=== PATIENT | female | born 1960 | race Caucasian/White ===

== ENCOUNTER 2016-11-04 20:10 | Emergency (ER) | payer MEDICARE, BC ==
[2016-11-04] MEDS ORDERED: Potassium Chloride 20 MEQ in Premix Bag 1 BAG IV ONE (22:21)
[2016-11-04] MEDS ORDERED: Potassium Chloride 10% 20 MEQ/15 ML Soln 15 ML UD Cup PO ONE (22:23)
[2016-11-04] MEDS ORDERED: Magnesium Oxide 400 MG Tab PO ONE (22:24)
[2016-11-04] MEDS ORDERED: Sodium Chloride 0.9% 10 ML Syringe FLUSH PRN (22:29)
[2016-11-04] MEDS ORDERED: Acetaminophen/oxyCODONE 325-5 MG Tab PO ONE (22:33)
[2016-11-05 01:21] VITALS: BP 122/65
--- NOTE | 2016-11-05 02:07 | EDM.PDOC ---
ED HPI GENERAL MEDICAL PROBLEM - General Chief Complaint: Cardiovascular Problem Stated Complaint: INFECTED SORES (39) HEART IS IRREGULAR Time Seen by Provider: 11/04/16 21:19 Source of Information: Reports: Patient History Limitations: Reports: No Limitations - History of Present Illness INITIAL COMMENTS - FREE TEXT/NARRATIVE: This patient said she drove about 3 hours today to see her daughter who is sick in her hospital. She said her heart seems to be fluttering and she feels sort of weak and shaky. She said she was outside yesterday but she drank a lot of fluids. Occasionally she feels her heart pounding she denies any pain. She takes atenolol for mitral valve prolapse she has hypothyroidism. She denies ever using any kind of diuretics. She also complained of mid back pain and requested medication for this. back Pain Score (Numeric/FACES): 6 heart Pain Score (Numeric/FACES): 0 - Related Data Allergies Allergy/AdvReac Type Severity Reaction Status Date / Time Sulfa (Sulfonamide Allergy Fever Verified 11/04/16 20:50 Antibiotics) Home Meds: Home Meds Atenolol 1 tab PO BID 11/04/16 [History] Levothyroxine Sodium [Synthroid] 1 tab PO DAILY 11/04/16 [History] Hydrocodone/Acetaminophen [Hydrocodon-Acetaminophen 5-325] 1 tab PO ASDIRECTED PRN 11/06/16 [History] Past Medical History Cardiovascular History: Reports: Arrhythmia, Heart Murmur, Hypertension Musculoskeletal History: Reports: Back Pain, Chronic, Osteoarthritis Endocrine/Metabolic History: Reports: Hypoparathyroidism - Past Surgical History HEENT Surgical History: Reports: Naso-Sinus Surgery GI Surgical History: Reports: Cholecystectomy Female Surgical History: Reports: Hysterectomy Social & Family History - Tobacco Use Smoking Status *Q: Never Smoker ED ROS GENERAL - Review of Systems Review Of Systems: See Below Constitutional: Reports: Weakness HEENT: Reports: No Symptoms Respiratory: Reports: No Symptoms Cardiovascular: Reports: Palpitations Endocrine: Reports: No Symptoms GI/Abdominal: Reports: No Symptoms : Reports: No Symptoms Musculoskeletal: Reports: No Symptoms Skin: Reports: Other (A lot of insect bites to her legs. She says these are fleas) Neurological: Reports: No Symptoms Psychiatric: Reports: No Symptoms Hematologic/Lymphatic: Reports: No Symptoms Immunologic: Reports: No Symptoms ED EXAM, GENERAL - Physical Exam Exam: See Below Exam Limited By: No Limitations General Appearance: Alert, WD/WN, No Apparent Distress Eye Exam: Bilateral Eye: Normal Inspection Ears: Normal External Exam Throat/Mouth: Normal Inspection Head: Atraumatic Neck: Normal Inspection Respiratory/Chest: Lungs Clear Cardiovascular: Regular Rate, Rhythm, No Murmur GI/Abdominal: Soft, Non-Tender Back Exam: Normal Inspection Extremities: Normal Inspection Neurological: Alert, Oriented Psychiatric: Normal Affect (Found out something) Skin Exam: Warm ( interesting), Dry (You might find useful) Course - Vital Signs Last Recorded V/S: Last Vital Signs Temp 35.8 C 11/05/16 01:19 Pulse 63 11/04/16 22:10 Resp 16 11/05/16 01:19 BP 122/65 11/05/16 01:19 Pulse Ox 96 11/05/16 01:19 - Orders/Labs/Meds Labs: Laboratory Tests 11/04/16 11/04/16 11/04/16 Range/Units 21:44 21:44 22:21 WBC 5.4 (4.5-11.0) K/uL RBC 4.47 (3.30-5.50) M/uL Hgb 12.8 (12.0-15.0) g/dL Hct 36.1 (36.0-48.0) % MCV 81 (80-98) fL MCH 29 (27-31) pg MCHC 36 (32-36) % Plt Count 299 (150-400) K/uL Neut % (Auto) 37 (36-66) % Lymph % (Auto) 50 H (24-44) % [place] % (Auto) 11 H (2-6) % Eos % (Auto) 2 (2-4) % Baso % (Auto) 1 (0-1) % Sodium 129 L (140-148) mmol/L Potassium 2.3 L* (3.6-5.2) mmol/L Chloride 86 L (100-108) mmol/L Carbon Dioxide 33 H (21-32) mmol/L Anion Gap 12.3 (5.0-14.0) mmol/L BUN 17 (7-18) mg/dL Creatinine 1.1 H (0.6-1.0) mg/dL Est Cr Clr Drug Dosing 47.70 mL/min Estimated GFR (MDRD) 51 L (>60) Glucose 120 H (74-106) mg/dL Calcium 8.9 (8.5-10.1) mg/dL Magnesium 2.1 (1.8-2.4) mg/dL Total Bilirubin 0.3 (0.2-1.0) mg/dL AST 39 H (15-37) U/L ALT 24 (12-78) U/L Alkaline Phosphatase 96 (46-116) U/L Troponin I < 0.017 (0.000-0.056) ng/mL Total Protein 8.1 (6.4-8.2) g/dL Albumin 4.0 (3.4-5.0) g/dL Globulin 4.1 H (2.3-3.5) g/dL Albumin/Globulin Ratio 1.0 L (1.2-2.2) 11/05/16 Range/Units 00:40 WBC (4.5-11.0) K/uL RBC (3.30-5.50) M/uL Hgb (12.0-15.0) g/dL Hct (36.0-48.0) % MCV (80-98) fL MCH (27-31) pg MCHC (32-36) % Plt Count (150-400) K/uL Neut % (Auto) (36-66) % Lymph % (Auto) (24-44) % [place] % (Auto) (2-6) % Eos % (Auto) (2-4) % Baso % (Auto) (0-1) % Sodium (140-148) mmol/L Potassium 3.5 L (3.6-5.2) mmol/L Chloride (100-108) mmol/L Carbon Dioxide (21-32) mmol/L Anion Gap (5.0-14.0) mmol/L BUN (7-18) mg/dL Creatinine (0.6-1.0) mg/dL Est Cr Clr Drug Dosing mL/min Estimated GFR (MDRD) (>60) Glucose (74-106) mg/dL Calcium (8.5-10.1) mg/dL Magnesium (1.8-2.4) mg/dL Total Bilirubin (0.2-1.0) mg/dL AST (15-37) U/L ALT (12-78) U/L Alkaline Phosphatase (46-116) U/L Troponin I (0.000-0.056) ng/mL Total Protein (6.4-8.2) g/dL Albumin (3.4-5.0) g/dL Globulin (2.3-3.5) g/dL Albumin/Globulin Ratio (1.2-2.2) Meds: Medications Discontinued Medications Generic Name Dose Route Start Last Admin Trade Name Freq PRN Reason Stop Dose Admin Potassium Chloride 20 meq/ 100 mls @ 50 mls/hr 11/04/16 22:21 11/04/16 22:44 Premix IV 11/05/16 00:20 50 mls/hr ONETIME ONE Administration Lidocaine HCl Confirm 11/04/16 22:36 11/04/16 22:45 Xylocaine-Mpf 1% Administered 11/04/16 22:37 5 ml Dose Administration 5 ml .ROUTE .STK-MED ONE Magnesium Oxide 800 mg 11/04/16 22:24 11/04/16 22:36 Magnesium Oxide PO 11/04/16 22:25 800 mg ONETIME ONE Administration Oxycodone/Acetaminophen 1 tab 11/04/16 22:33 11/04/16 22:39 Percocet 325-5 Mg PO 11/04/16 22:34 1 tab ONETIME ONE Administration Potassium Chloride 40 meq 11/04/16 22:23 11/04/16 22:43 Potassium Chloride Solution PO 11/04/16 22:24 40 meq ONETIME ONE Administration Sodium Chloride 10 ml 11/04/16 22:29 11/04/16 22:44 Saline Flush FLUSH 10 ml ASDIRECTED PRN Administration Keep Vein Open - Re-Assessments/Exams Free Text/Narrative Re-Assessment/Exam: 11/06/16 07:40 EKG showed sinus rhythm at 71 bpm borderline intraventricular conduction delay there seems to be some repolarization abnormality I don't think this is ischemia however her QTC is 622 ms. I think the T waves were seeing her actually Q waves because her potassium is 2.3. A repeat EKG about one hour later is similar. An IV was established she was given a total of 20 mEq of KCl over 2 hours IV. She also received 40 mEq of oral solution. She also received a single dose of magnesium oxide orally although her magnesium level subsequently turned out to be normal. After receiving the potassium her serum potassium was up to 3.5. QTC was down to 521 ms. She still appears to have U waves. The lateral ST depression seems to have resolved. 11/06/16 07:44 This patient did complain of severe back pain while she was here and was given Narco which seemed to help 11/06/16 07:45 Departure - Departure Time of Disposition: 02:03 Disposition: Home, Self-Care 01 Condition: Fair Clinical Impression: Palpitations, Acute hypokalemia - Discharge Information Instructions: Hypokalemia, Potassium Content of Foods Referrals: PCP,None [Primary Care Provider] - Forms: ED Department Discharge Additional Instructions: You had severe hypokalemia. This can be very irritating to your heart and cause cardiac arrhythmias. It also causes muscle weakness and a number of other things. We have not determined what was the cause of the hypokalemia. You will need to talk with your doctor about that. In the meantime take daily at least 1/2 teaspoon of salt substitute. Salt substitute is potassium chloride. A half teaspoon of salt substitute contains about 30 mEq of potassium. A low magnesium level can be associated with hypokalemia. Your magnesium level was however normal. Even so you should take one tablet of magnesium oxide daily. You may find this in the vitamin area at the [employer]. Generally about 400 mg of magnesium oxide daily. Please plan to see your doctor within the next week and bring copies of all your labs and EKGs The hydrocodone can cause sedation and impair driving.
== END 2016-11-05 02:27 | disposition home or self-care (01) ==
LOC: JP.ED 20:10
DX: R00.2 Palpitations (principal); E87.6 Hypokalemia; I10 Essential (primary) hypertension; M19.90 Unspecified osteoarthritis, unspecified site; E20.9 Hypoparathyroidism, unspecified; Z90.49 Acquired absence of other specified parts of digestive tract; Z98.890 Other specified postprocedural states; Z90.710 Acquired absence of both cervix and uterus; Z79.899 Other long term (current) drug therapy; Z79.82 Long term (current) use of aspirin; Z88.2 Allergy status to sulfonamides
CPT/HCPCS: 36415; 80053; 83735; 84132; 84484; 85025; 93005; 93010; 96360; 96361; 99284; 99285; A9270; J3480; J7050

== ENCOUNTER 2016-11-06 07:13 | Emergency (ER) | payer MEDICARE, BC ==
[2016-11-06 07:34] VITALS: BP 129/65
[2016-11-06] MEDS ORDERED: Cyclobenzaprine 10 MG Tab PO ONE (07:44)
[2016-11-06] MEDS ORDERED: Ketorolac 60 MG/2 ML SDV IM ONE (07:44)
--- NOTE | 2016-11-06 07:52 | EDM.PDOC ---
ED HPI GENERAL MEDICAL PROBLEM - General Chief Complaint: Back Pain or Injury Stated Complaint: BACK PAIN Time Seen by Provider: 11/06/16 07:39 Source of Information: Reports: Patient, RN Notes Reviewed History Limitations: Reports: No Limitations - History of Present Illness INITIAL COMMENTS - FREE TEXT/NARRATIVE: 56-year-old female presents emergency department today with a complaint of low back pain, she states she injured herself while moving some household furniture , was evaluated in the emergency department yesterday at which time she was found to be hypokalemic in combination with low back pain and experiencing palpitations. She feels the palpitations have resolved back pain has continued no loss of bowel or bladder is predominantly on the left side. She also states she's been having troubles with her thyroid and has been areflexic Back Pain Score (Numeric/FACES): 7 - Related Data Allergies Allergy/AdvReac Type Severity Reaction Status Date / Time Sulfa (Sulfonamide Allergy Fever Verified 11/04/16 20:50 Antibiotics) Home Meds: Home Meds Atenolol 1 tab PO BID 11/04/16 [History] Levothyroxine Sodium [Synthroid] 1 tab PO DAILY 11/04/16 [History] Acetaminophen/oxyCODONE [Percocet 325-5 MG] 1 each PO Q6H PRN #10 tab 11/06/16 [ Rx] Cyclobenzaprine [Flexeril] 10 mg PO TID PRN #30 tab 11/06/16 [Rx] Hydrocodone/Acetaminophen [Hydrocodon-Acetaminophen 5-325] 1 tab PO ASDIRECTED PRN 11/06/16 [History] Past Medical History Cardiovascular History: Reports: Arrhythmia, Heart Murmur, Hypertension Musculoskeletal History: Reports: Back Pain, Chronic, Osteoarthritis Endocrine/Metabolic History: Reports: Hypoparathyroidism - Past Surgical History HEENT Surgical History: Reports: Naso-Sinus Surgery GI Surgical History: Reports: Cholecystectomy Female Surgical History: Reports: Hysterectomy Social & Family History - Tobacco Use Smoking Status *Q: Never Smoker - Caffeine Use Caffeine Use: Reports: Coffee - Recreational Drug Use Recreational Drug Use: No ED ROS GENERAL - Review of Systems Review Of Systems: See Below Constitutional: Reports: No Symptoms Respiratory: Reports: No Symptoms Cardiovascular: Reports: No Symptoms GI/Abdominal: Reports: No Symptoms : Reports: No Symptoms Musculoskeletal: Reports: Back Pain Neurological: Reports: No Symptoms ED EXAM,LOWER BACK PAIN/INJURY - Physical Exam Exam: See Below Exam Limited By: No Limitations General Appearance: Alert, WD/WN, No Apparent Distress Respiratory/Chest: No Respiratory Distress Back Exam: Normal Inspection, Decreased Range of Motion, Muscle Spasm, Paraspinal Tenderness. No: CVA Tenderness (R), CVA Tenderness (L), Vertebral Tenderness Course - Vital Signs Last Recorded V/S: Last Vital Signs Temp 97.3 F 11/06/16 07:34 Pulse 64 11/06/16 07:34 Resp 16 11/06/16 07:34 BP 129/65 11/06/16 07:34 Pulse Ox 96 11/06/16 07:34 - Orders/Labs/Meds Meds: Medications Discontinued Medications Generic Name Dose Route Start Last Admin Trade Name Freq PRN Reason Stop Dose Admin Cyclobenzaprine HCl 10 mg 11/06/16 07:44 11/06/16 07:49 Flexeril PO 11/06/16 07:45 10 mg ONETIME ONE Administration Ketorolac Tromethamine 60 mg 11/06/16 07:44 11/06/16 07:49 Toradol IM 11/06/16 07:45 60 mg ONETIME ONE Administration Departure - Departure Time of Disposition: 09:19 Disposition: Home, Self-Care 01 Condition: Good Clinical Impression: Back pain Qualifiers: Back pain location: low back pain Chronicity: acute Back pain laterality: left Sciatica presence: without sciatica Qualified Code(s): M54.5 - Low back pain - Discharge Information Prescriptions: Acetaminophen/oxyCODONE [Percocet 325-5 MG] 1 each PO Q6H PRN #10 tab PRN Reason: Pain Cyclobenzaprine [Flexeril] 10 mg PO TID PRN #30 tab PRN Reason: Pain Referrals: PCP,None [Primary Care Provider] - Forms: ED Department Discharge Additional Instructions: Continue to use ibuprofen for baseline pain control, use Percocet as needed for breakthrough pain, use Flexeril as needed for muscle relaxant, Please followup with your primary care provider in 3-5 days if not better, please call return to the emergency department with worsening of symptoms. - Assessment/Plan Plan: Assessment Acuity = acute Site and laterality = low back pain Etiology = secondary to lifting injury Manifestations = none Location of injury = Home Lab values = none Plan She had good relief combination Flexeril and Toradol plan is discharge home with prescription for Flexeril 10 mg by mouth 3 times a day when necessary total #30 and Percocet 5/325 1-2 tablets every 4-6 hours total #10 follow-up with primary care 3-5 days if no improvement Patient was in agreement with the plan all questions were answered, they were instructed to return to the emergency department or call for worsening symptoms. This note was dictated using [employer] voice recognition software please call with any questions.
== END 2016-11-06 09:27 | disposition home or self-care (01) ==
LOC: JP.ED 07:13
DX: M62.830 Muscle spasm of back (principal); I10 Essential (primary) hypertension; M19.90 Unspecified osteoarthritis, unspecified site; E20.9 Hypoparathyroidism, unspecified; Z90.49 Acquired absence of other specified parts of digestive tract; Z90.710 Acquired absence of both cervix and uterus; Z98.890 Other specified postprocedural states; Z79.899 Other long term (current) drug therapy; Z88.2 Allergy status to sulfonamides; X50.0XXA Overexertion from strenuous movement or load, initial encounter
CPT/HCPCS: 96372; 99283; A9270; J1885